=== PATIENT | male | born 1980 | race Caucasian/White ===

== ENCOUNTER → 2016-11-05 | Outpatient (REF) | payer BC ==
[~2016-11-05] MED LIST: /CELE20CA PO; CIPR500T19 PO; COLA100C PO; ENAL10TA PO; ENAL10TA10 PO; FLEX5TAB3 PO; METR500T10 PO; MOTR200T40 PO; NEUR600T PO; OXYCO5TA PO; TYLE325T5 PO; [UNRECOGNIZED DRUG - CODE] PO
== END ==
LOC: M LAB REF 16:58
PROVIDERS: ATTEND Nurse Practitioner Adult Health
DX: N41.0 Acute prostatitis (principal)

== ENCOUNTER → 2016-12-29 | Outpatient (REF) | payer BC ==
[~2016-12-29] MED LIST changes: -MOTR200T40 PO; +MOTR200T44 PO
== END ==
LOC: M LAB REF 16:43
PROVIDERS: ATTEND Nurse Practitioner Adult Health
DX: J01.90 Acute sinusitis, unspecified (principal); J02.9 Acute pharyngitis, unspecified

== ENCOUNTER → 2017-01-10 | Outpatient (REF) | payer BC | LOC: M SMT 17:00 | PROVIDERS: ATTEND Nurse Practitioner Women's Health | DX: R35.0 Frequency of micturition (principal) ==

== ENCOUNTER → 2017-06-13 | Outpatient (CLI) | payer BC ==
[~2017-06-13] MED LIST changes: -COLA100C PO; +COLA100C5 PO; +METR1TAB66 PO; -METR500T10 PO
[2017-06-13 12:27] LABS: FREE T4 1.2 NG/DL (0.76-1.46)
== END ==
LOC: M LRY 09:19
PROVIDERS: ATTEND Internal Medicine
DX: E03.9 Hypothyroidism, unspecified (principal)

== ENCOUNTER → 2020-03-31 | Outpatient (REF) | payer BC ==
[~2020-03-31] MED LIST changes: -/CELE20CA PO; +CELE1CAP4 PO; +METR-265 PO; -METR1TAB66 PO; +OXYC-517 PO; -OXYCO5TA PO
== END ==
LOC: M SFHCLERA 16:52
PROVIDERS: ATTEND Physician Assistant
DX: J02.9 Acute pharyngitis, unspecified (principal)

== ENCOUNTER → 2022-04-16 | Outpatient (REF) | payer BC ==
[2022-04-16 13:05] LABS: ALBUMIN 3.8 GM/DL (3.2-5.2); BLOOD UREA NITROGEN 10 MG/DL (7-18); CALCIUM LEVEL 8.4 MG/DL (8.5-10.1); CARBON DIOXIDE LEVEL 28 MEQ/L (21-32); CHLORIDE LEVEL 103 MEQ/L (98-107); CREATININE FOR GFR 0.68 MG/DL (0.70-1.30); GLOMERULAR FILTRATION RATE > 60.0 (>60); GLUCOSE, FASTING 108 MG/DL (70-100); PHOSPHORUS LEVEL 2.6 MG/DL (2.5-4.9); POTASSIUM SERUM 3.6 MEQ/L (3.5-5.1); SODIUM LEVEL 137 MEQ/L (136-145)
== END ==
LOC: M WUC 12:12 → M LAB REF 12:12
PROVIDERS: ATTEND Student in an Organized Health Care Education/Training Program
DX: U07.1 COVID-19 (principal)

== ENCOUNTER → 2023-09-07 | Outpatient (REF) | payer BC ==
[2023-09-09 09:11] LABS: LDL DIRECT 91 mg/dL (0-99)
== END ==
LOC: M LAB REF 16:21
PROVIDERS: ATTEND Nurse Practitioner Adult Health
DX: E78.5 Hyperlipidemia, unspecified (principal)

== ENCOUNTER → 2024-07-09 | Outpatient (CLI) | payer BC | LOC: M WUC 10:36 | PROVIDERS: ATTEND Registered Nurse | DX: T14.8XXA Other injury of unspecified body region, initial encounter (principal); M16.0 Bilateral primary osteoarthritis of hip ==

== ENCOUNTER 2024-07-15 19:35 | Emergency (ER) | payer BC ==
[~2024-07-15] VITALS: Ht 185.4 cm; Wt 150.0 kg
[2024-07-16] MEDS: MECLIZINE 25 MG TABLET PO ONE (00:39)
[2024-07-16 00:43] LABS: BASO % 0.3 % (0.0-1.0); EOS % 0.2 % (0.0-3.0); HEMATOCRIT 39.9 % (42.0-52.0); HEMOGLOBIN 13.6 g/dl (13.5-17.5); LYMPH # 1.3 10^3/uL (1.5-5.0); LYMPH % 12.3 % (24.0-44.0); MEAN CORPUSCULAR HEMOGLOBIN 29.3 pg (27.0-33.0); MEAN CORPUSCULAR HGB CONC 34.1 g/dl (32.0-36.5); MONO # 0.5 10^3/uL (0.0-0.8); MONO % 4.8 % (2.0-8.0); NEUTROPHILS # 8.8 10^3/uL (1.5-8.5); NEUTROPHILS % 81.7 % (36.0-66.0); PLATELET COUNT, AUTOMATED 251 10^3/uL (150-450); RED BLOOD COUNT 4.64 10^6/uL (4.30-6.10); WHITE BLOOD COUNT 10.7 10^3/uL (4.0-10.0)
[2024-07-16 01:09] LABS: BLOOD UREA NITROGEN 13 MG/DL (9-23); CALCIUM LEVEL 9.2 MG/DL (8.5-10.1); CARBON DIOXIDE LEVEL 29 MMOL/L (20-31); CHLORIDE LEVEL 101 MMOL/L (98-107); CPK CREATINE PHOSPHOKINASE 341 U/L (46-171); CREATININE FOR GFR 0.65 MG/DL (0.70-1.30); GLOMERULAR FILTRATION RATE > 60.0 (>60); GLUCOSE, FASTING 101 MG/DL (60-100); POTASSIUM SERUM 3.8 MMOL/L (3.5-5.1); SODIUM LEVEL 137 MMOL/L (136-145)
[2024-07-16 01:37] LABS: CK-MB VALUE MASS 4.6 NG/ML (<3.6); MB/CK RELATIVE INDEX 1.34 (< OR =4)
[2024-07-16] MEDS: NS 1,000 ML IV ONE (02:07)
[2024-07-16] MEDS ORDERED: MECL-209 PO (02:57)
[2024-07-16 02:58] VITALS: BP 139/79; TEMP 97.4; O2SAT 99
== END 2024-07-16 03:04 | disposition home or self-care (01) ==
LOC: M ED 19:35
DX: H83.02 Labyrinthitis, left ear (principal); E78.5 Hyperlipidemia, unspecified; N32.81 Overactive bladder; I10 Essential (primary) hypertension; F10.10 Alcohol abuse, uncomplicated; Z88.1 Allergy status to other antibiotic agents; Z79.2 Long term (current) use of antibiotics; Z79.899 Other long term (current) drug therapy

== ENCOUNTER → 2024-09-12 | Outpatient (REF) | payer BC ==
[~2024-09-12] MED LIST changes: +MECL-209 PO
== END ==
LOC: M LAB REF 13:25
PROVIDERS: ATTEND Nurse Practitioner Adult Health
DX: E03.9 Hypothyroidism, unspecified (principal)

== ENCOUNTER 2025-01-24 06:58 | Day surgery (SDC) | payer BC ==
[~2025-01-24] VITALS: Ht 182.9 cm; Wt 153.8 kg
[~2025-01-24 06:58] MED LIST changes: +AMLO1TAB24 PO; +CITA10TA7 PO; +LEVO150T7 PO; +LISI20TA37 PO; +LORA-1041 PO; +OXYB10TA23 PO; +ROSU10TA61 PO
[2025-01-24] MEDS ORDERED: fentaNYL 100 MCG/2 ML INJECTION As Ordered ONE (07:51)
[2025-01-24] MEDS ORDERED: MIDAZOLAM INJ 2MG/2ML VIAL As Ordered ONE (07:51)
[2025-01-24] MEDS ORDERED: propofoL 200 MG/20 ML VIAL As Ordered ONE (07:53)
[2025-01-24] MEDS ORDERED: LIDOCAINE 2% 100MG/5ML SDV (FOR ANES.) As Ordered ONE (07:53)
[2025-01-24] MEDS ORDERED: GLYCOPYRROLATE INJ 0.2 MG/ML 2 ML VIAL As Ordered ONE (07:55)
[2025-01-24 08:23] VITALS: TEMP 97.9
[2025-01-24 08:52] VITALS: BP 139/73; O2SAT 95
== END 2025-01-24 08:53 | disposition home or self-care (01) ==
LOC: M OPP 06:58
PROVIDERS: ATTEND Surgery
DX: Z12.11 Encounter for screening for malignant neoplasm of colon (principal); K62.1 Rectal polyp; K57.30 Diverticulosis of large intestine without perforation or abscess without bleeding; K20.90 Esophagitis, unspecified without bleeding; K29.70 Gastritis, unspecified, without bleeding; K44.9 Diaphragmatic hernia without obstruction or gangrene; K30 Functional dyspepsia; G47.30 Sleep apnea, unspecified; Z88.1 Allergy status to other antibiotic agents; Z79.899 Other long term (current) drug therapy
CPT/HCPCS: 43239; 45380; 88305; J1596; J2250; J3010